=== PATIENT | male | born 1980 | race Caucasian/White ===

== ENCOUNTER 2016-10-06 09:09 | Emergency (ER) | payer OTHER ==
[2016-10-06 09:47] VITALS: BP 145/103
--- NOTE | 2016-10-06 09:49 | UC ---
General HPI - HPI Summary HPI Summary: med refill requesting a Rx for his Thyroid medication last time he took the medication was 2 days ago - History of Current Complaint Chief Complaint: UCMedRefill Stated Complaint: MED REFILL Time Seen by Provider: 10/06/16 09:37 Hx Obtained From: Patient Onset/Duration: Gradual Onset, Lasting Days - 2, Still Present Onset Severity: Moderate Current Severity: Moderate Associated Signs & Symptoms: Negative: Agitation, Headache, Recent Medication Changes, Weakness - Allergy/Home Medications Allergies/Adverse Reactions: Allergies Allergy/AdvReac Type Severity Reaction Status Date / Time No Known Allergies Allergy Verified 10/06/16 09:27 PMH/Surg Hx/FS Hx/Imm Hx - Additional Past Medical History Additional PMH: hypothyroidism Previously Healthy: Yes - Surgical History Surgical History: Yes Surgery Procedure, Year, and Place: neuroblastoma removed as , thyroid - Family History Known Family History: Positive: Unknown, Other - hypothyroidism Negative: Diabetes - Social History Alcohol Use: Weekly Alcohol Amount: "COUPLE BEERS A WEEK" Substance Use Type: None Smoking Status (MU): Light Every Day Tobacco Smoker Type: Cigarettes Amount Used/How Often: 9-10 cigs daily Household Exposure Type: Cigarettes - Immunization History Most Recent Influenza Vaccination: NONE 2016 Most Recent Tetanus Shot: UTD Most Recent Pneumonia Vaccination: NONE Review of Systems Constitutional: Negative Skin: Negative Eyes: Negative ENT: Negative Respiratory: Negative Cardiovascular: Negative All Other Systems Reviewed And Are Negative: Yes Physical Exam Triage Information Reviewed: Yes Appearance: Well-Appearing, No Pain Distress, Well-Nourished Vital Signs: Initial Vital Signs Temp 97.7 F 10/06/16 09:28 Pulse 87 10/06/16 09:28 Resp 16 10/06/16 09:28 BP 145/103 10/06/16 09:28 Pulse Ox 100 10/06/16 09:28 Vital Signs Reviewed: Yes Eyes: Positive: Conjunctiva Clear ENT: Positive: Normal ENT inspection, Hearing grossly normal, Pharynx normal Neck exam: Normal Neck: Positive: Supple, Nontender, No Lymphadenopathy Respiratory: Positive: Chest non-tender, Lungs clear, Normal breath sounds Cardiovascular: Positive: RRR, No Murmur, Pulses Normal Abdominal Exam: Normal Abdomen Description: Positive: Nontender, Soft Bowel Sounds: Positive: Present Musculoskeletal Exam: Normal Neurological Exam: Normal Psychological Exam: Normal Skin Exam: Normal Course/Dx - Course Course Of Treatment: elevated bp: pt. will monitor his bp daily , will follow up with his pcp in one week - Differential Dx - Multi-Symptom Provider Diagnoses: hypothyroidism. elevated bp Discharge - Discharge Plan Condition: Stable Disposition: HOME Prescriptions: Levothyroxine Sodium [Synthroid] 200 mcg PO DAILY #30 tab Patient Education Materials: Hypothyroidism (ED) Referrals: ABIGAIL Ely [Primary Care Provider] - 7 Days
== END 2016-10-06 09:50 | disposition home or self-care (01) ==
LOC: UCCORT 09:09
DX: E03.9 Hypothyroidism, unspecified (principal); R03.0 Elevated blood-pressure reading, without diagnosis of hypertension; F17.210 Nicotine dependence, cigarettes, uncomplicated
CPT/HCPCS: 99212; G0463

== ENCOUNTER 2017-02-15 15:22 | Emergency (ER) | payer OTHER ==
[2017-02-15 16:08] VITALS: BP 141/80
--- NOTE | 2017-02-15 16:41 | UC ---
UC Dental HPI - HPI Summary HPI Summary: ight lower dental pain, chronic decay and poor dentition after have radiation for cancer - History of Current Complaint Chief Complaint: UCDentalProblem Stated Complaint: DENTAL Time Seen by Provider: 02/15/17 16:35 Hx Obtained From: Patient Onset/Duration: Gradual Onset, Lasting Days - 4, Worse Since - today Severity: Severe Pain Intensity: 10 Related History: Previous Dental Care on Same Tooth, Swelling - Allergies/Home Medications Allergies/Adverse Reactions: Allergies Allergy/AdvReac Type Severity Reaction Status Date / Time No Known Allergies Allergy Verified 02/15/17 16:01 Home Medications: Home Medications Atorvastatin* [Lipitor 40 MG*] 1 tab BEDTIME 02/15/17 [History Confirmed ] Clopidogrel TAB* [Plavix TAB*] 1 tab DAILY 02/15/17 [History Confirmed 02/15/17] Lisinopril TAB* [Prinivil TAB 10 MG*] 10 mg DAILY 02/15/17 [History Confirmed ] amLODIPine TAB* [Norvasc 5 mg TAB*] 10 mg DAILY 02/15/17 [History Confirmed ] PMH/Surg Hx/FS Hx/Imm Hx Previously Healthy: No Endocrine History: Hypothyroidism, Dyslipidemia Cardiovascular History: Hypertension - Surgical History Surgical History: Yes Surgery Procedure, Year, and Place: neuroblastoma removed as infant, thyroid - Family History Known Family History: Positive: Unknown, Other - hypothyroidism Negative: Diabetes - Social History Occupation: Employed Full-time Lives: With Family Alcohol Use: None Alcohol Amount: "COUPLE BEERS A WEEK" Substance Use Type: Marijuana Substance Use Comment - Amount & Last Used: occasionally- 1 month ago Smoking Status (MU): Light Every Day Tobacco Smoker Type: Cigarettes Amount Used/How Often: 2-3 cigs/day Household Exposure Type: Cigarettes - Immunization History Most Recent Influenza Vaccination: no Most Recent Tetanus Shot: 2 yrs, he thinks Most Recent Pneumonia Vaccination: NONE Review of Systems Constitutional: Negative Skin: Negative Eyes: Negative ENT: Dental Pain - right lower tooth decay with pain and swelling Respiratory: Negative Cardiovascular: Negative Gastrointestinal: Negative Genitourinary: Negative Motor: Negative Neurovascular: Negative Musculoskeletal: Negative Neurological: Negative Psychological: Negative Is Patient Immunocompromised?: No All Other Systems Reviewed And Are Negative: Yes Physical Exam Triage Information Reviewed: Yes Appearance: Well-Appearing, Well-Nourished, Pain Distress Vital Signs: Initial Vital Signs Temp 99.1 F 02/15/17 16:03 Pulse 99 02/15/17 16:03 Resp 16 02/15/17 16:03 BP 141/80 02/15/17 16:03 Pulse Ox 98 02/15/17 16:03 Vital Signs Reviewed: Yes Eye Exam: Normal Eyes: Positive: Conjunctiva Clear ENT Exam: Normal ENT: Positive: Normal ENT inspection, Hearing grossly normal, Pharynx normal, Dental tenderness. Negative: Nasal congestion, Tonsillar swelling, Tonsillar exudate, Trismus, Muffled voice, Hoarse voice, Sinus tenderness Dental Exam: Normal Neck exam: Normal Neck: Positive: Supple, Nontender, No Lymphadenopathy Respiratory Exam: Normal Respiratory: Positive: Chest non-tender, Lungs clear, Normal breath sounds, No respiratory distress, No accessory muscle use Cardiovascular Exam: Normal Cardiovascular: Positive: RRR, No Murmur, Pulses Normal, Brisk Capillary Refill Musculoskeletal Exam: Normal Musculoskeletal: Positive: Strength Intact, ROM Intact, No Edema Neurological Exam: Normal Neurological: Positive: Alert, Muscle Tone Normal, Fatigued Psychological Exam: Normal Skin Exam: Normal Dental Complaint Course/Dx - Course Course Of Treatment: Clindamycin, hydrocodone, follow with dentist this week, follow blood pressure with pcp - Differential Dx/Diagnosis Provider Diagnoses: Hypertension in poor control, dental abscess right lower jaw with dental decay Discharge - Discharge Plan Condition: Stable Disposition: HOME Prescriptions: Clindamycin Cap(NF) [Clindamycin Cap 300 mg Cap(NF)] 300 mg PO Q6H #40 cap HYDROcodone/ACETAMIN 5-325 MG* [Kodak 5-325 TAB*] 1 - 2 tab PO Q4H PRN #20 tab MDD 6 PRN Reason: Pain HYDROcodone/ACETAMIN 5-325 MG* [Kodak 5-325 TAB*] 1 - 2 tab PO Q4H PRN #24 tab MDD 6 PRN Reason: Pain Patient Education Materials: Dental Abscess (ED), Hypertension (ED), Toothache (ED) Referrals: [facility] [Outside] - 2 Weeks
--- OUTSIDE RECORDS SUMMARY | 2017-02-18 09:34 | XMS REPORT | Continuity of Care Document ---
:1980 Author Organization [facility] Address [address] [place] [address] Care Team Providers Name Role Phone DOCTOR, NO Primary Care Physician Unavailable Insurance Providers Payer Name Policy Number Subscriber Name Relationship [employer] [id number] LUIS MANUEL LOPEZ SELF Advance Directives Directive Response Recorded Date/Time Code status: Full code 02/16/17 9:35pm Advance Directive? N 02/16/17 9:35pm Living Will? N 02/16/17 9:35pm Health Care Proxy? N 02/16/17 9:35pm Is the patient an Organ Donor? N 02/16/17 9:35pm Chief Complaint and Reason for Visit Reason for Visit TOUNG SWOLLEN, HARD TO SWALLOWM, DENTAL INFECTION Problems Active Medical Problems Problem Onset Date Recorded Date Status Urolithiasis Unknown 08/29/13 Active Calculus of ureter Unknown 08/29/13 Active Hypothyroid Unknown 10/22/13 Active Cellulitis Unknown 12/05/13 Active Knee pain Unknown 12/05/13 Active Abscess Unknown 12/07/13 Active Medication refill Unknown 12/22/13 Active Headache Unknown 10/04/14 Active Knee sprain Unknown 01/23/16 Active Dental abscess Unknown 02/16/17 Active Thyroid nodule Unknown 02/16/17 Active Tobacco abuse Unknown 02/16/17 Active Medications Current Home Medications Medication Dose Units Route Directions Days/Qty Instructions Start Date Amlodipine 10 CAPSULE ORAL ONCE DAILY Besylate/Benazepri l (Amlodipine-Benaze pril 10-20 MG) 10 MG-20 MG CAPSULE Amoxicil. Clav. 1 TABLET ORAL EVERY 12 20 02/16/17 (Amox Tr-K Clv HOURS 875-125 MG Tab *) 875 MG-125 MG TAB Aspirin (Aspir 81) 81 MG ORAL ONCE DAILY 81 MG TABLET. Atorvastatin 40 MG ORAL ONCE DAILY (Lipitor) 40 MG TABLET Clopidogrel 75 MG ORAL ONCE DAILY Bisulfate (Plavix) 75 MG TABLET Diphenhydramine 25 MG ORAL EVERY 4 HOURS 10 02/16/17 HCl (Benadryl *) 25 MG CAPSULE Famotidine 20 MG ORAL 2 TIMES A DAY 10 02/16/17 (Pepcid) 20 MG TABLET Ibuprofen 600 MG 600 MG ORAL 3 TIMES A DAY 20 02/16/17 TABLET NEEDED as needed for PAIN Levothyroxine 200 MCG ORAL ONCE DAILY Sodium (Unithroid) 200 MCG TABLET Lisinopril 10 MG 10 MG ORAL ONCE DAILY TABLET Nitroglycerin 0.4 MG SUBLINGUAL EVERY 5 (Nitrostat) 0.4 MG MINUTE TAB.SUBL Oxycodone 1 TABLET ORAL EVERY 4 TO 6 14 02/16/17 HCl/Acetaminophen HRS as needed (Percocet 5-325 MG for Pain Tablet) 5 MG-325 MG TABLET Prednisone 20 MG ORAL 2 TIMES A DAY 4 02/16/17 (Prednisone *) 20 MG TABLET Past Home Medications Medication Directions Ordered Status Acetaminophen 325 Mg Tablet Q4H PRN for ACHE Unknown Discontinued Tablet, 2 Tab Oral Caffeine (Stay Awake) 200 Mg NEEDED for STAY AWAKE Unknown Discontinued Tablet Tablet, 1 Unit Oral Cephalexin (Keflex) 500 Mg Cap 2 TIMES A DAY 01/08/10 Discontinued Cap, 2 Cap Oral Cephalexin (Keflex) 500 Mg Cap 2 TIMES A DAY 07/11/09 Discontinued Cap, 2 Cap Oral Cephalexin (Keflex) 500 Mg Cap 4 TIMES A DAY 08/25/07 Discontinued Cap, 1 Cap Oral Cephalexin (Keflex) 500 Mg EVERY 6 HOURS 12/05/13 Discontinued Capsule Capsule, 500 Mg Oral Cephalexin (Keflex) 500 Mg 4 TIMES A DAY 01/08/12 Discontinued Capsule Capsule, 500 Mg Oral Clindamycin Hcl (Cleocin Hcl) 300 EVERY 6 HOURS 12/07/13 Discontinued Mg Capsule Capsule, 300 Mg Oral Hydrocodone Bit/Acetaminophen EVERY 4-6 HOURS NEEDED as 12/07/13 Discontinued (Hydrocodon-Acetaminophen 5-325 needed for PAIN *) 1 Each Tablet Tablet, 2 Tablet Oral Hydrocodone Bit/Acetaminophen EVERY 6 HOURS 01/23/16 Discontinued (Hydrocodon-Acetaminophen 5-325 *) 5 Mg-325 Mg Tablet Tablet, 1 TabletOral Hydrocodone Bit/Acetaminophen EVERY 4-6 HOURS NEEDED as 12/05/13 Discontinued (Hydrocodon-Acetaminophen 5-325 needed for PAIN *) 5 Mg-325 Mg Tablet Tablet, 1 TabletOral Hydroxyzine (Atarax) 25 Mg Tab EVERY 6-8 HOURS NEEDED 08/25/07 Discontinued Tab, 25 Mg Oral Levothyroxine Sodium (Levothroid) ONCE DAILY 02/27/12 Discontinued 175 Mcg Tablet Tablet, 175 Mcg Oral Levothyroxine Sodium (Synthroid) ONCE DAILY Unknown Discontinued 0.175 Mg Tab Tab, 0.175 Mg Oral Levothyroxine Sodium (Synthroid) ONCE DAILY 12/22/13 Discontinued 175 Mcg Tablet Tablet, 175 Mcg Oral Levothyroxine Sodium (Synthroid) ONCE DAILY 08/01/16 Discontinued 200 Mcg Tablet Tablet, 200 Mcg Oral Levothyroxine Sodium (Synthroid) ONCE DAILY 06/14/16 Discontinued 200 Mcg Tablet Tablet, 200 Mcg Oral Levothyroxine Sodium 175 Mcg ONCE DAILY 10/22/13 Discontinued Tablet Tablet, 175 Mcg Oral Naproxen (Naprosyn) 500 Mg Tablet 2 TIMES A DAY 01/23/16 Discontinued Tablet, 500 Mg Oral Oxycodone Hcl/Acetaminophen EVERY 4 TO 6 HRS 08/11/12 Discontinued (Percocet 5-325 Mg Tablet) 5 Mg-325 Mg Tablet Tablet, 1-2 Tablet Oral Prednisone 10 Mg Tab Tab, 2 Tab ONCE DAILY 08/13/09 Discontinued Oral Prednisone 10 Mg Tab Tab, 2 Tab ONCE DAILY 12/06/08 Discontinued Oral Prednisone 10 Mg Tab Tab, 2 Tab ONCE DAILY 11/29/08 Discontinued Oral Smz / Tmp (Septra Ds) 800 Mg-160 2 TIMES A DAY 10/16/11 Discontinued Mg Tab Tab, 1 Tab Oral Smz/Tmp Ds (Bactrim Ds) 1 Tab Tab 2 TIMES A DAY 07/11/09 Discontinued Tab, 1 Tab Oral Sulfamethoxazole/Trimethoprim 2 TIMES A DAY 12/07/13 Discontinued (Bactrim Ds Tablet *) 1 Each Tablet Tablet, 1 Tablet Oral Tamsulosin Hcl (Flomax) 0.4 Mg AT BEDTIME 08/11/12 Discontinued Caps Caps, 0.4 Mg Oral Family History Relationship Name Date of Condition Age ( At Cause of Age ( At Age Gender Recorded Onset ) ) Date/Time MOTHER Family F 10/21/14 history of 1834 malignant neoplasm FATHER Family M 12/22/13 history of 1834 myocardial infarction Social History Problem Response Recorded Date Other substance/drug use DENIES 02/16/17 Tobacco use within the past 12 months? Y 08/11/12 Alcohol amt OCCASIONAL 05/02/10 Query Response Start Date Stop Date Smoking Status Light smoker Hospital Discharge Instructions No hospital discharge instructions. Plan of Care Discharge Date 02/16/17 Disposition Routine Discharge Home Condition at Discharge STABLE Instructions/Education Provided Cellulitis (ED) Prescriptions See Medications Section Referrals DOCTOR,NO - Additional Instructions/Education You need to make an appointment to follow- up with the following health care provider or your regular doctor within 3 days. Please make your appointment to see your health care provider as soon as possible. Please return immediately if your symptoms worsen, or you cannot get a follow-up appointment. Compared with last night you still have mild tongue swelling but there are improvements in your fever and/or cellulitis and her white blood count. I still believe the tongue swelling is from the infection will but will place him on a short course of steroids as well as antihistamines. Functional Status Query Response Date Recorded Do you get in and out of a chair: Independently February 16, 2017 10:15pm Do you bathe/dress: Independently February 16, 2017 10:15pm Adaptive devices: None February 16, 2017 10:15pm Living situation: Independent at home February 16, 2017 10:15pm Mood: Accepting February 16, 2017 10:15pm Orientation: X3: Person/place/time February 16, 2017 10:15pm Allergies, Adverse Reactions, Alerts Allergen Type Severity Reaction Status Last Updated amoxicillin Allergy Intermediate TONGUE SWELLING Active 02/16/17 Immunizations Name Date Given Type Last Tetanus Historical Vital Signs Vital Reading Collection Date/Time Result Blood Pressure 02/16/17 11:05pm 137/70 Temperature 02/16/17 11:05pm 97.2 F Temperature Source 02/16/17 11:05pm Oral Respiratory Rate 02/16/17 11:05pm 16 Pulse Rate 02/16/17 11:05pm 93 Bedside Pulse Oximetry 02/16/17 11:05pm 94 Height 02/16/17 9:32pm 5 ft 6 in Height 02/16/17 9:32pm 167.64 cm Weight 02/16/17 9:32pm 190 lb Weight 02/16/17 9:32pm 86.184 kg Body Mass Index 02/16/17 9:32pm 30.7 kg/m2 Results Laboratory Results Test Name Result Units Flags Reference Collection Result Comments Date/Time Date/Time White Blood 10.8 K/uL H 3.4-10.5 02/16/17 02/16/17 Count 9:44pm 9:59pm Red Blood Count 3.91 M/uL L 4.20-5.80 02/16/17 02/16/17 9:44pm 9:59pm Hemoglobin 12.2 gm/dL L 12.8-17.0 02/16/17 02/16/17 9:44pm 9:59pm Hematocrit 36.3 % L 38.0-48.0 02/16/17 02/16/17 9:44pm 9:59pm Mean 92.8 fl 80.0-96.0 02/16/17 02/16/17 Corpuscular 9:44pm 9:59pm Volume Mean 31.2 pg 27.0-33.0 02/16/17 02/16/17 Corpuscular 9:44pm 9:59pm Hemoglobin Mean 33.6 g/dL 31.7-36.0 02/16/17 02/16/17 Corpuscular 9:44pm 9:59pm Hemoglobin Concent Platelet Count 335 K/uL 155-360 02/16/17 02/16/17 9:44pm 9:59pm Red Cell 39.5 fl 36-51 02/16/17 02/16/17 Distribution 9:44pm 9:59pm Width RDW Coefficient 11.9 % 11.6-15.8 02/16/17 02/16/17 of Variation 9:44pm 9:59pm Mean Platelet 10.4 fL 6.6-10.6 02/16/17 02/16/17 Volume 9:44pm 9:59pm Neutrophils (%) 64.1 % 33.0-73.0 02/16/17 02/16/17 (Auto) 9:44pm 9:59pm Lymphocytes (%) 21.1 % 20.0-42.0 02/16/17 02/16/17 (Auto) 9:44pm 9:59pm Monocytes (%) 12.0 % H 0.0-10.0 02/16/17 02/16/17 (Auto) 9:44pm 9:59pm Eosinophils (%) 2.2 % 0.0-6.6 02/16/17 02/16/17 (Auto) 9:44pm 9:59pm Basophils (%) 0.6 % 0.0-1.1 02/16/17 02/16/17 (Auto) 9:44pm 9:59pm Neutrophils # 6.95 K/uL 1.8-7.0 02/16/17 02/16/17 (Auto) 9:44pm 9:59pm Lymphocytes # 2.29 K/uL 1.0-4.0 02/16/17 02/16/17 (Auto) 9:44pm 9:59pm Monocytes # 1.30 K/uL H 0.0-0.8 02/16/17 02/16/17 (Auto) 9:44pm 9:59pm Eosinophils # 0.24 K/uL 0.0-0.5 02/16/17 02/16/17 (Auto) 9:44pm 9:59pm Basophils # 0.06 K/uL 0.0-0.1 02/16/17 02/16/17 (Auto) 9:44pm 9:59pm Manual Slide Instrument flagged sample for slide review. 02/16/17 Review Less than 10% Bands seen, no other immature WBC's seen. 1: 39am 2:19am (Hematology) RBC morphology essentially normal. Platelet estimate=NORMAL Glucose Screen 103 mg/dL 74-106 02/16/17 02/16/17 1:39am 2:11am Blood Urea 21 mg/dL H 7-18 02/16/17 02/16/17 Nitrogen 1:39am 2:11am Creatinine 1.4 mg/dL H 0.6-1.3 02/16/17 02/16/17 1:39am 2:11am Estimated GFR 60 mL/min >60 02/16/17 02/16/17 (Non- 1:39am 2:11am Tunisian Estimated GFR >60 mL/min >60 02/16/17 02/16/17 Note: ( 1:39am 2:11am Persistent reduction for 3 months or more in an eGFR <60 Tunisian) mL/min/1.73 m2 defines CKD. Patients with eGFR values & gt;/=60 mL/min/1.73 m2 may also have CKD if evidence of persistent proteinuria is present. The original MDRD equation for estimated GFR is not valid for patients less than 18 years of age. Additional information may be found at www.[facility].org. BUN/Creatinine 15.0 ratio 02/16/17 02/16/17 Ratio 1:39am 2:11am Sodium Level 140 mmol/L 136-145 02/16/17 02/16/17 1:39am 2:11am Potassium Level 4.0 mmol/L 3.5-5.1 02/16/17 02/16/17 1:39am 2:11am Chloride Level 105 mmol/L 98-107 02/16/17 02/16/17 1:39am 2:11am Carbon Dioxide 28 mmol/L 21-32 02/16/17 02/16/17 Level 1:39am 2:11am Anion Gap 7 mEq/L L 8-16 02/16/17 02/16/17 1:39am 2:11am Calcium Level 12.6 mg/dL H 8.5-10.1 02/16/17 02/16/17 1:39am 2:11am Total Protein 8.0 g/dL 6.4-8.2 02/16/17 02/16/17 1:39am 2:11am Albumin 4.2 g/dL 3.4-5.0 02/16/17 02/16/17 1:39am 2:11am Globulin 3.8 g/dL 1.9-4.3 02/16/17 02/16/17 1:39am 2:11am Albumin/Globuli 1.1 ratio 02/16/17 02/16/17 n Ratio 1:39am 2:11am Total Bilirubin 0.4 mg/dL 0.2-1.0 02/16/17 02/16/17 1:39am 2:11am Aspartate Amino 13 U/L L 15-37 02/16/17 02/16/17 Values below the stated reference ranges of AST and ALT can Transf 1:39am 2:11am be seen in normal populations. Clinical correlation is (AST/SGOT) suggested. Alanine 28 U/L 12-78 02/16/17 02/16/17 Aminotransferas 1:39am 2:11am e (ALT/SGPT) Alkaline 139 U/L H 45-117 02/16/17 02/16/17 Phosphatase 1:39am 2:11am Lactic Acid 0.8 mMol/L 0.4-1.9 02/16/17 02/16/17 Level 1:39am 2:10am Prothrombin 13.5 Seconds 12.0-14.4 01/11/17 01/11/17 Time 6:54am 8:19am INR 1.0 0.9-1.1 01/11/17 01/11/17 THERAPEUTIC INR RANGE: International 6:54am 8:19am 2.0 - 3.0 DVT, Pulmonary embolus, prophylaxis against Normalized venous thrombosis or systemic embolization Ratio in high risk patients. 2.5 - 3.5 Mechanical heart valves Activated 144.8 Seconds *H 23.4-35.0 01/11/17 01/11/17 Partial 6:54am 8:19am Thromboplast Time Differential 100 #CELLS 01/11/17 01/11/17 Total Cells 5:49am 6:15am Counted Band 1 % 0-8 01/11/17 01/11/17 Neutrophils % 5:49am 6:15am Neutrophils % 73 % 33-73 01/11/17 01/11/17 5:49am 6:15am Lymphocytes % 19 % L 20-42 01/11/17 01/11/17 5:49am 6:15am Atypical 2 % 0-7 01/11/17 01/11/17 Lymphocytes % 5:49am 6:15am Monocytes % 4 % 0-10 01/11/17 01/11/17 5:49am 6:15am Eosinophils % 1 % 0-5 01/11/17 01/11/17 5:49am 6:15am Platelet NORMAL 01/11/17 01/11/17 Estimate 5:49am 6:15am Polychromasia 0-1+ 01/11/17 01/11/17 5:49am 6:15am Anisocytosis 0-1+ 01/11/17 01/11/17 5:49am 6:15am Total Creatine 322 U/L H 39-308 01/11/17 01/11/17 Kinase 5:49am 6:35am Troponin I 2.350 ng/mL *H 01/11/17 01/11/17 0.0 - 0.045 ng/mL: Normal 5:49am 6:35am 0.046 - 0.5 ng/mL: Suggestive 0.6 - 1.5 ng/mL: Consistent [facility] [address] [facility], [address]AdisTHE CHILDR[facility] : [id number] MAURA CARRANZA MD ƒ‚‚‚‚ƒ‚&# 8218;‚‚ƒ‚‚‚‚ƒ‚‚‚ ‚ [id number] ƒ‚‚‚‚ƒ‚‚‚‚ƒ&#8218 ;‚‚‚ƒ‚‚‚‚ƒ‚‚&# 8218;‚ƒ‚‚‚‚ƒ‚‚‚‚ ƒ‚‚‚‚ƒ‚‚‚‚ƒ&#8218 ;‚‚‚ƒ‚‚‚‚ƒ‚‚&# 8218;‚ ER Stationary ECG Study [facility] - ER Test Date: 2017-01-11 05:44:00 Pat Name: LUIS MANUEL LOPEZ Department: ER Room: Gender: 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 Intervals [place] Rate: 59 P: 57 [place]: 154 QRS: 48 QRSD: 94 T: 71 QT: 370 QTc: 369 Interpretive Statements SINUS BRADYCARDIA NORMAL ECG no old EKGs Electronically Signed On 01-11-2017 9:19:05 EST by Shine Santamaria D.O. Procedures Procedure Status Date Provider(s) PORTABLE AP CHEST Completed 01/11/[address] SOFT TISS NECK W/ IV CONT Completed 02/16/17 CRUZITO FORBES MD Encounters Encounter Location Arrival/Admit Date Discharge/Depart Date Attending Provider Departed [place] 02/16/17 9:22pm 02/16/17 11:28pm CRUZITO FORBES MD [facility] Departed [place] 02/16/17 1:09am 02/16/17 3:02am CRUZITO FORBES MD Medical [facility]tr[facility] Departed [place] 01/11/17 5:37am 01/11/17 7:37am Adeel DRIVER Emergency [facility] Encounter Diagnosis Onset Date Cellulitis
--- OUTSIDE RECORDS SUMMARY | 2017-02-18 09:34 | XMS REPORT | Continuity of Care Document ---
:1980 Author Organization [facility] Address [address] [place] [address] Care Team Providers Name Role Phone DOCTOR, NO Primary Care Physician Unavailable Insurance Providers Payer Name Policy Number Subscriber Name Relationship [employer] [id number] LUIS MANUEL LOPEZ SELF Advance Directives Directive Response Recorded Date/Time Code status: Full code 02/16/17 1:15am Advance Directive? N 02/16/17 1:15am Living Will? N 02/16/17 1:15am Health Care Proxy? N 02/16/17 1:15am Is the patient an Organ Donor? N 02/16/17 1:15am Chief Complaint and Reason for Visit Reason for Visit TOOTH INFECTION, MEDS, NOW TOUNG SWOLLEN, Problems Active Medical Problems Problem Onset Date [...] Date Amlodipine 10 CAPSULE ORAL ONCE DAILY Besylate/Benazepr il (Amlodipine-Benaz epril 10-20 MG) 10 MG-20 MG CAPSULE Amoxicil. Clav. 1 TABLET ORAL EVERY 12 HOURS 20 02/16/17 (Amox Tr-K Clv 875-125 MG Tab *) 875 MG-125 MG TAB Aspirin (Aspir 81 MG ORAL ONCE DAILY 81) 81 MG TABLET. Atorvastatin 40 MG ORAL ONCE DAILY (Lipitor) 40 MG TABLET Clopidogrel 75 MG ORAL ONCE DAILY Bisulfate (Plavix) 75 MG TABLET Ibuprofen 600 MG 600 MG ORAL 3 TIMES A DAY 02/16/17 TABLET NEEDED as needed for PAIN Levothyroxine 200 MCG ORAL ONCE DAILY Sodium (Unithroid) 200 MCG TABLET Lisinopril 10 MG 10 MG ORAL ONCE DAILY TABLET Nitroglycerin 0.4 MG SUBLINGUAL EVERY 5 MINUTE (Nitrostat) 0.4 MG TAB.SUBL Oxycodone 1 TABLET ORAL EVERY 4 TO 6 14 02/16/17 HCl/Acetaminophen HRS as needed (Percocet 5-325 for Pain MG Tablet) 5 MG-325 MG TABLET Past Home Medications Medication Directions [...] Onset ) ) Date/Time MOTHER Family F 12/22/13 history of 1833 malignant neoplasm FATHER Family M 12/22/13 history of 1834 myocardial infarction Social History Problem Response Recorded Date Other substance/drug use MARIJUANA 02/16/17 Tobacco use within the past 12 months? Y 08/11/12 Alcohol amt OCCASIONAL 05/02/10 Query Response Start Date Stop Date Smoking Status Light smoker Hospital Discharge Instructions No hospital discharge instructions. Plan of Care Discharge Date 02/16/17 Disposition Routine Discharge Home Condition at Discharge STABLE Instructions/Education Provided Effects of Smoking, Alcohol, and Medicines on (ED) How to Stop Smoking (ED) Dental Abscess (ED) Cellulitis (ED) Cigarette Smoking and Your Health (GEN) Prescriptions See Medications Section Referrals DOCTOR,NO - Additional Instructions/Education You need to make an appointment to follow- up with the following health care provider or your regular doctor within 3 days. Please make your appointment to see your health care provider as soon as possible. Please return immediately if your symptoms worsen, or you cannot get a follow-up appointment. Saturday please contact a dentist. Take the Percocets and ibuprofen for pain. Switch the amoxicillin to Augmentin. Use [id number] Benadryl 25 milligrams 4 times a day for any swelling. Recheck if worse. Please stop smoking Please follow-up with your primary doctor as you do have some narrowing in the carotid arteries any nodule on the thyroid as well as this cellulitis and dental abscess. Functional Status Query Response Date Recorded Do you get in and out of a chair: Independently February 16, 2017 1:55am Do you bathe/dress: Independently February 16, 2017 1:55am Adaptive devices: None February 16, 2017 1:55am Living situation: Independent at home February 16, 2017 1:55am Allergies, Adverse Reactions, Alerts No known allergies. Immunizations Name Date Given Type Last Tetanus Historical Vital Signs Vital Reading Collection Date/Time Result Blood Pressure 02/16/17 2:47am 134/85 Temperature 02/16/17 2:47am 98.8 F Temperature Source 02/16/17 2:47am Oral Respiratory Rate 02/16/17 2:47am 17 Pulse Rate 02/16/17 2:47am 87 Bedside Pulse Oximetry 02/16/17 2:47am 94 Height 02/16/17 1:12am 5 ft 6 in Height 02/16/17 1:12am 167.64 cm Weight 02/16/17 1:12am 190 lb Weight 02/16/17 1:12am 86.184 kg Body Mass Index 02/16/17 1:12am 30.7 kg/m2 Results Laboratory Results Test Name Result Units Flags Reference Collection Result Comments Date/Time Date/Time White Blood 12.2 K/uL H 3.4-10.5 02/16/17 02/16/17 Count 1:39am 1:50am Red Blood Count 4.13 M/uL L 4.20-5.80 02/16/17 02/16/17 1:39am 1:50am Hemoglobin 12.9 gm/dL 12.8-17.0 02/16/17 02/16/17 1:39am 1:50am Hematocrit 38.1 % 38.0-48.0 02/16/17 02/16/17 1:39am 1:50am Mean 92.3 fl 80.0-96.0 02/16/17 02/16/17 Corpuscular 1:39am 1:50am Volume Mean 31.2 pg 27.0-33.0 02/16/17 02/16/17 Corpuscular 1:39am 1:50am Hemoglobin Mean 33.9 g/dL 31.7-36.0 02/16/17 02/16/17 Corpuscular 1:39am 1:50am Hemoglobin Concent Platelet Count 312 K/uL 155-360 02/16/17 02/16/17 1:39am 1:50am Red Cell 38.8 fl 36-51 02/16/17 02/16/17 Distribution 1:39am 1:50am Width RDW Coefficient 11.7 % 11.6-15.8 02/16/17 02/16/17 of Variation 1:39am 1:50am Mean Platelet 10.2 fL 6.6-10.6 02/16/17 02/16/17 Volume 1:39am 1:50am Neutrophils (%) 69.5 % 33.0-73.0 02/16/17 02/16/17 (Auto) 1:39am 1:50am Lymphocytes (%) 15.4 % L 20.0-42.0 02/16/17 02/16/17 (Auto) 1:39am 1:50am Monocytes (%) 12.0 % H 0.0-10.0 02/16/17 02/16/17 (Auto) 1:39am 1:50am Eosinophils (%) 2.8 % 0.0-6.6 02/16/17 02/16/17 (Auto) 1:39am 1:50am Basophils (%) 0.3 % 0.0-1.1 02/16/17 02/16/17 (Auto) 1:39am 1:50am Neutrophils # 8.49 K/uL H 1.8-7.0 02/16/17 02/16/17 (Auto) 1:39am 1:50am Lymphocytes # 1.88 K/uL 1.0-4.0 02/16/17 02/16/17 (Auto) 1:39am 1:50am Monocytes # 1.47 K/uL H 0.0-0.8 02/16/17 02/16/17 (Auto) 1:39am 1:50am Eosinophils # 0.34 K/uL 0.0-0.5 02/16/17 02/16/17 (Auto) 1:39am 1:50am Basophils # 0.04 K/uL 0.0-0.1 02/16/17 02/16/17 (Auto) 1:39am 1:50am Manual Slide Instrument flagged sample for slide [...] mL/min >60 02/16/17 02/16/17 (Non- 1:39am 2:11am Nigerien Estimated GFR >60 mL/min >60 02/16/17 02/16/17 Note: ( 1:39am 2:11am Persistent reduction for 3 months or more in an eGFR <60 Nigerien) mL/min/1.73 m2 defines CKD. Patients with eGFR [...] ng/mL: Suggestive 0.6 - 1.5 ng/mL: Consistent [facility] [address], [address] [place] [address] LUIS MANUEL LOPEZ : [phone] [id number] MAURA CARRANZA MD ƒ‚‚‚‚ƒ‚&# 8218;‚‚ƒ‚‚‚‚ƒ‚‚‚ ‚ [id number] ƒ‚‚‚‚ƒ‚‚‚‚ƒ&#8218 ;‚‚‚ƒ‚‚‚‚ƒ‚‚&# 8218;‚ƒ‚‚‚‚ƒ‚‚‚‚ ƒ‚‚‚‚ƒ‚‚‚‚ƒ&#8218 ;‚‚‚ƒ‚‚‚‚ƒ‚‚&# 8218;‚ ER Stationary ECG Study 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 Intervals [place] Rate: 59 P: 57 IA: 154 QRS: 48 QRSD: 94 T: 71 QT: 370 QTc: 369 Interpretive Statements SINUS BRADYCARDIA NORMAL ECG no old EKGs Electronically Signed On 01-11-2017 9:19:05 EST by Shine Santamaria D.O. Procedures Procedure Status Date Provider(s) PORTABLE AP CHEST Completed 01/11/[address] SOFT TISS NECK W/ IV CONT Active 02/16/17 CRUZITO FORBES MD Encounters Encounter Location Arrival/Admit Date Discharge/Depart Date Attending Provider Departed [place] 02/16/17 1:09am 02/16/17 3:02am CRUZITO FORBES [facility] Departed [place] [facility] 01/11/17 5:37am 01/11/17 7:37am Aed[facility] Encounter Diagnosis Onset Date Cellulitis Dental abscess Thyroid nodule Tobacco abuse
--- OUTSIDE RECORDS SUMMARY | 2017-02-18 09:35 | XMS REPORT ---
:1980 External Reference #:[id number] Author Organization [facility] Address [address] [place] [address] Phone [phone] Care Team Providers Name Role Phone Stevan Newell RPA-C Care Team Information Designated Broker Unavailable Payers Type Date Identification Numbers Payment Provider Subscriber Commercial Effective: Policy Number: [id number] [employer] Melvin Roman 2013 Group Number: [id number] [address] PayID: [id number] [place] [address] Problems Date Description Provider Status Onset: 01/17/2017 Pure hypercholesterolemia Stevan Newell, P.A. Active Family History Date Family Member(s) Problem(s) Comments Father due to Heart Attack () - at age 48 Mother due to Pfo () Mother due to Cancer () First Brother due to Heart Attack () - at age 37 Social History Type Date Description Comments Marital Status Legal Status: Allergies, Adverse Reactions, Alerts Date Description Reaction Status Severity Comments 01/17/2017 NKDA active Medications Medication Date Status Form Strength Qnty SIG Indications Ordering Provider Amlodipine 0 Active Tablets 10mg 1 by Unknown Besylate 000 mouth every day Aspirin /[address] 81mg 1 by Unknown 000 mouth every day Atorvastatin 0 Active Tablets 40mg 1 by Unknown Calcium 000 mouth every day Plavix 00/0 Active Tablets 75mg 1 by Unknown 000 mouth every day Lisinopril 0 Active Tablets 10mg 1 by Unknown 000 mouth every day Nitrostat 0 Active Tablets 0.4mg 1 tab Unknown 000 Sub under tongue, repeat q5 mins x2, as needed for chest pain Synthroid Active Tablets 200mcg 1 by Unknown 000 mouth every day Vital Signs Date Vital Result Comment 01/17/2017 BP Systolic Left Arm 130 mmHg BP Diastolic Left Arm 84 mmHg Heart Rate 73 /min Weight 196.12 lb Height 66 inches 5'6" BMI (Body Mass Index) 31.7 kg/m2 Results Description No Information Procedures Date CPT Code Description Status 01/17/2017 15270 Electrocardiogram Complete Completed 01/11/2017 78777 Left Heart Cath W/Wo LV & Coronary Angiography Completed Encounters Type Date Location Provider CPT E/M Dx Office Visit 01/17/2017 [facility] Stevan Newell, [address] I21.4 11[facility] I10 E78.2 Z72.0 Office Visit 01/11/2017 4:30p [facility] [place] [address] I21.4 Plan of Care Future Appointment(s):04/19/2017 3:15 pm - Aria Altamirano MD at [facility] Pvvxcnusht04/16/2017 - Stevan Newell, P.A.I21.4 Non-St elevation ( Nstemi) myocardial [id number] Essential (primary) slkrldurqypnH65.2 Mixed yqmuatoplxasusR11.0 Tobacco use
== END 2017-02-15 17:12 | disposition home or self-care (01) ==
LOC: UCCORT 15:22
DX: K04.7 Periapical abscess without sinus (principal); K02.9 Dental caries, unspecified; I10 Essential (primary) hypertension; Z92.3 Personal history of irradiation; Z85.9 Personal history of malignant neoplasm, unspecified; E78.5 Hyperlipidemia, unspecified; Z72.89 Other problems related to lifestyle; Z72.0 Tobacco use
CPT/HCPCS: 99212; G0463

== ENCOUNTER 2017-03-05 11:19 | Emergency (ER) | payer OTHER ==
[2017-03-05 13:31] VITALS: BP 167/94
--- NOTE | 2017-03-05 13:35 | UC ---
General HPI - HPI Summary HPI Summary: 36 year old presents for a refill on his Synthroid. He has an appointment on 04/07. - History of Current Complaint Chief Complaint: UCMedRefill Stated Complaint: MED REFILL Time Seen by Provider: 03/05/17 13:35 Hx Obtained From: Patient Onset/Duration: Sudden Onset Timing: Constant Onset Severity: Moderate Current Severity: Moderate - Allergy/Home Medications Allergies/Adverse Reactions: Allergies Allergy/AdvReac Type Severity Reaction Status Date / Time No Known Allergies Allergy Verified 03/05/17 13:31 PMH/Surg Hx/FS Hx/Imm Hx Previously Healthy: Yes - Surgical History Surgical History: Yes Surgery Procedure, Year, and Place: neuroblastoma removed as , thyroid - Family History Known Family History: Positive: Unknown, Other - hypothyroidism Negative: Diabetes - Social History Alcohol Use: None Alcohol Amount: "COUPLE BEERS A WEEK" Substance Use Type: Marijuana Substance Use Comment - Amount & Last Used: occasionally- 1 month ago Smoking Status (MU): Light Every Day Tobacco Smoker Type: Cigarettes Amount Used/How Often: 2-3 cigs/day Household Exposure Type: Cigarettes - Immunization History Most Recent Influenza Vaccination: no Most Recent Tetanus Shot: 2 yrs, he thinks Most Recent Pneumonia Vaccination: NONE Review of Systems Constitutional: Negative Skin: Negative Eyes: Negative ENT: Negative Respiratory: Negative Cardiovascular: Negative Gastrointestinal: Negative Genitourinary: Negative Motor: Negative Neurovascular: Negative Musculoskeletal: Negative Neurological: Negative Psychological: Negative All Other Systems Reviewed And Are Negative: Yes Physical Exam Triage Information Reviewed: Yes Vital Signs: Initial Vital Signs Temp 37.1 C 03/05/17 13:27 Pulse 99 03/05/17 13:27 Resp 16 03/05/17 13:27 BP 167/94 03/05/17 13:27 Pulse Ox 99 03/05/17 13:27 Vital Signs Reviewed: Yes Eye Exam: Normal ENT Exam: Normal Dental Exam: Normal Neck exam: Normal Neck: Positive: 1 Respiratory Exam: Normal Cardiovascular Exam: Normal Abdominal Exam: Normal Musculoskeletal Exam: Normal Neurological Exam: Normal Psychological Exam: Normal Skin Exam: Normal Course/Dx - Differential Dx - Multi-Symptom Provider Diagnoses: hypothyroidism Discharge - Discharge Plan Condition: Stable Disposition: HOME Prescriptions: Levothyroxine Sodium [Synthroid] 200 mcg PO DAILY #30 tab Patient Education Materials: Hypothyroidism (ED) Referrals: No Primary Care Phys,NOPCP [Primary Care Provider] -
== END 2017-03-05 13:42 | disposition home or self-care (01) ==
LOC: UCCORT 11:19
DX: E03.9 Hypothyroidism, unspecified (principal); F17.210 Nicotine dependence, cigarettes, uncomplicated; Z76.0 Encounter for issue of repeat prescription
CPT/HCPCS: 99212; G0463

== ENCOUNTER 2018-01-09 19:19 | Emergency (ER) | payer SELFPAY ==
[2018-01-09 19:45] VITALS: BP 152/11
--- NOTE | 2018-01-09 20:06 | UC ---
UC General HPI - HPI Summary HPI Summary: Pt presents for medicine refill. Pt has not f/u with PCP and has run out of synthroid refills. Pt has been taking levothyroxine since age 13. 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 [facility] - Family History Known Family History: Positive: Unknown, Other - hypothyroidism Negative: Diabetes - Social History Lives: With Family Alcohol Use: Occasionally Alcohol Amount: "COUPLE BEERS A WEEK" Substance Use Type: Marijuana Substance Use Comment - Amount & Last Used: occasionally-2 weeks ago Smoking Status (MU): Light Every Day Tobacco Smoker Type: Cigarettes Amount Used/How Often: 2-3 cigs/day Have You Smoked in the Last Year: Yes Household Exposure Type: Cigarettes - Immunization History Most Recent Influenza Vaccination: no Most Recent Tetanus Shot: Unknown Most Recent Pneumonia Vaccination: NONE Review of Systems All Other Systems Reviewed And Are Negative: Yes Constitutional: Positive: Negative Skin: Positive: Negative Eyes: Positive: Negative ENT: Positive: Negative Respiratory: Positive: Negative Cardiovascular: Positive: Negative Gastrointestinal: Positive: Negative Genitourinary: Positive: Negative Motor: Positive: Negative Neurovascular: Positive: Negative Musculoskeletal: Positive: Negative Neurological: Positive: Negative Psychological: Positive: Negative Is Patient Immunocompromised?: No Physical Exam Triage Information Reviewed: Yes Appearance: Well-Appearing Vital Signs: Initial Vital Signs Temp 98.7 F 01/09/18 19:37 Pulse 73 01/09/18 19:37 Resp 18 01/09/18 19:37 BP 152/11 01/09/18 19:37 Pulse Ox 98 01/09/18 19:37 Vital Signs Reviewed: Yes Eye Exam: Normal ENT Exam: Normal Dental Exam: Normal Neck exam: Normal Respiratory Exam: Normal Cardiovascular Exam: Normal Musculoskeletal Exam: Normal Neurological Exam: Normal Psychological Exam: Normal Skin Exam: Normal Course/Dx - Differential Dx - Multi-Symptom Provider Diagnoses: medication refill Discharge - Sign-Out/Discharge Documenting (check all that apply): Patient Departure All imaging exams completed and their final reports reviewed: No Studies - Discharge Plan Condition: Stable Disposition: HOME Prescriptions: Levothyroxine Sodium [Synthroid] 200 mcg PO DAILY #30 tab Patient Education Materials: Medicine Refill (ED) Referrals: [facility] [Outside] - If Needed No Primary Care Phys,NOPCP [Primary Care Provider] - - Billing Disposition and Condition Condition: STABLE Disposition: Home - Attestation Statements Provider Attestation: I was available for consult. This patient was seen by the EMRE. The patient was not presented to, seen by, or examined by me. -Sruthi
== END 2018-01-09 20:00 | disposition home or self-care (01) ==
LOC: UCCORT 19:19
DX: Z76.0 Encounter for issue of repeat prescription (principal); Z91.048 Other nonmedicinal substance allergy status; F17.210 Nicotine dependence, cigarettes, uncomplicated
CPT/HCPCS: 99212; G0463

== ENCOUNTER 2018-10-05 16:48 | Emergency (ER) | payer SELFPAY ==
[2018-10-05 17:18] VITALS: BP 128/76
--- NOTE | 2018-10-05 17:32 | UC ---
Skin Complaint HPI - HPI Summary HPI Summary: Was hospitalized with cellulitis hands and legs. IV antibiotics for 3 days, now on cephalexin and doxy. Swelling, redness and pain are much better. Would like note to return to work. - History of Current Complaint Chief Complaint: UCLowerExtremity Stated Complaint: SKIN COMPLAINT F/U Hx Obtained From: Patient Onset/Duration: Gradual Onset, Lasting Days - 5, Still Present - but improving. Timing: Constant Onset Severity: Mild Current Severity: Moderate Pain Intensity: 0 Location: Discrete, Hand (Right), Hand (Left), Foot (Right), Foot (Left) Character: Swelling, Pain, Redness Aggravating Factor(s): Touch - Allergy/Home Medications Allergies/Adverse Reactions: Allergies Allergy/AdvReac Type Severity Reaction Status Date / Time cats Allergy Itching Uncoded 10/05/18 17:09 Home Medications: Home Medications Cephalexin CAP* [Keflex 500 CAP*] 500 mg PO QID 10/05/18 [History Confirmed 06/20] DOXYcycline CAP(*) [DOXYcycline 100MG CAP(*)] 100 mg PO BID 10/05/18 [History Confirmed 10/05/18] Hydrochlorothiazide TAB* [Hydrodiuril TAB*] 25 mg PO DAILY 10/05/18 [History Confirmed 10/05/18] Lactobacillus Acidophilus* 1 cap PO BID 10/05/18 [History Confirmed 10/05/18] Pantoprazole TAB * [Protonix TAB*] 40 mg PO DAILY 10/05/18 [History Confirmed ] predniSONE TAB* [Deltasone 10 MG TAB*] 20 mg PO DAILY 10/05/18 [History Confirmed 10/05/18] PMH/Surg Hx/FS Hx/Imm Hx Endocrine History: Hypothyroidism - Surgical History Surgical History: Yes Surgery Procedure, Year, and Place: neuroblastoma removed as , 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 [facility] - Family History Known Family History: Positive: Cardiac Disease, Other - hypothyroidism Negative: Diabetes - Social History Occupation: Employed Full-time Lives: With Family Alcohol Use: Occasionally Alcohol Amount: "COUPLE BEERS A WEEK" Substance Use Type: Marijuana Substance Use Comment - Amount & Last Used: occasionally-2 weeks ago Smoking Status (MU): Light Every Day Tobacco Smoker Type: Cigarettes Amount Used/How Often: 6-7 cigs/day Have You Smoked in the Last Year: Yes Household Exposure Type: Cigarettes Cessation Counseling: Patient Advised to Stop - Immunization History Most Recent Influenza Vaccination: no Most Recent Tetanus Shot: Unknown Most Recent Pneumonia Vaccination: NONE Review of Systems All Other Systems Reviewed And Are Negative: Yes Skin: Positive: Other - cellulitis Physical Exam Triage Information Reviewed: Yes Appearance: Well-Appearing, No Pain Distress, Well-Nourished Vital Signs: Initial Vital Signs Temp 99.6 F 10/05/18 17:14 Pulse 90 10/05/18 17:14 Resp 18 10/05/18 17:14 BP 128/76 10/05/18 17:14 Pulse Ox 96 10/05/18 17:14 Vital Signs Reviewed: Yes Eyes: Positive: Conjunctiva Clear Neck: Positive: No Lymphadenopathy, Other: - scarring right neck from surgery Respiratory: Positive: Lungs clear Cardiovascular: Positive: RRR, No Murmur Musculoskeletal: Positive: Edema @ - 2 + pitting edema pretibial bilateral. Neurological Exam: Normal Psychological Exam: Normal Skin: Positive: Other - erythema with scaling bilateral hands/ feet. Course/Dx - Differential Diagnoses - Skin Complaint Differential Diagnoses: Abscess, Cellulitis, Impetigo, MRSA - Diagnoses Provider Diagnosis: Cellulitis Discharge - Sign-Out/Discharge Documenting (check all that apply): Patient Departure All imaging exams completed and their final reports reviewed: No Studies - Discharge Plan Condition: Stable Disposition: HOME Patient Education Materials: Cellulitis (ED) Forms: *Work Release Referrals: No Primary Care Phys,NOPCP [Primary Care Provider] - Additional Instructions: Make sure to use sunscreen every day while on the doxycycline. Smoking Cessation Tricks. 1. Cut down by 1 cigarette per day every 2-3 days. Write the number of smokes for that day on the calendar. 2. Identify triggers to smoking: after meals, on the phone, in the car, with coffee, on breaks at work, etc. 3. Formulate a plan with a behavior to replace the smoking. Fireballs in the car , doodle pad on the phone, flavored creamer for the coffee, go for a walk after a meal or on break at work. 4. For stress smokes do deep breathing relaxation. Breath deep in through the nose hold the breath in for a few seconds then breath out slowly through the mouth. - Billing Disposition and Condition Condition: STABLE Disposition: Home
== END 2018-10-05 17:35 | disposition home or self-care (01) ==
LOC: UCCORT 16:48
DX: Z51.89 Encounter for other specified aftercare (principal); L03.114 Cellulitis of left upper limb; L03.113 Cellulitis of right upper limb; L03.116 Cellulitis of left lower limb; L03.115 Cellulitis of right lower limb; F17.210 Nicotine dependence, cigarettes, uncomplicated
CPT/HCPCS: 99211; G0463